=== PATIENT | female | born 1955 | race Caucasian/White ===

== ENCOUNTER 2016-05-29 20:35 | Observation (INO) | payer OTHER ==
[2016-05-29] MEDS ORDERED: IOPAMIDOL 300 (61%) 150 ML VIAL IV ONE (20:36)
[2016-05-29] MEDS ORDERED: HYDROMORPHONE HCL 0.5 MG/0.5 ML SYRINGE ONE (22:32)
[2016-05-29] MEDS ORDERED: LACTATED RINGERS 1,000 ML ONE (22:32)
[2016-05-29 22:34] LABS: ABSOLUTE NEUTROPHIL COUNT 10.2 K/mm3 (1.8-7.7); BASO % 0.3 % (0.2-1.0); EOS % 0.3 % (0.9-2.9); HEMATOCRIT 29.7 % (37.0-47.0); HEMOGLOBIN 9.8 gm/l (12.0-16.0); IMM NEUT # 0.1 K/mm3 (0-0.2); IMM NEUT% 0.6 % (0-1); LYMPH # 0.6 (1.0-4.8); LYMPH % 5.3 % (15-45); MEAN CELL VOLUME 89.5 fl (81.0-99.0); MEAN CORPUSCULAR HEMOGLOBIN 29.5 pg (27.0-31.0); MEAN PLATELET VOLUME 9.3 fl (7.4-10.4); MONO # 0.9 (0.0-0.8); MONO % 7.6 % (4-12); NEUT % 85.9 % (43-75); PLATELET COUNT 370 K/mm3 (130-400); RED CELL DISTRIBUTION WIDTH 21.4 % (11.5-14.5)
[2016-05-29 22:50] LABS: CALCIUM 9.4 mg/dL (8.6-10.3)
[2016-05-30 00:10] LABS: SPECIFIC GRAVITY 1.015 (1.001-1.030); URINE APPEARANCE CLEAR; URINE BILIRUBIN NEGATIVE (NEGATIVE); URINE BLOOD NEGATIVE (NEGATIVE); URINE COLOR YELLOW; URINE GLUCOSE (UA) NEGATIVE (NEGATIVE); URINE LEUKOCYTE ESTERASE NEGATIVE (NEGATIVE); URINE NITRITE NEGATIVE (NEGATIVE); URINE PROTEIN NEGATIVE (NEGATIVE); URINE UROBILINOGEN NORMAL (0-1 mg/dl)
[2016-05-30] MEDS ORDERED: POTASSIUM CHLORIDE 10MEQ/100ML 100 ML IV ONE (00:15)
[2016-05-30] MEDS ORDERED: Potassium Chloride ORAL SOLN 20 MEQ/15 ML UDCUP ONE (00:16)
[2016-05-30 01:26] VITALS: BMI 17.2
[2016-05-30] MEDS ORDERED: BISACODYL 5 MG TABLET.EC PO PRN (01:54)
[2016-05-30] MEDS ORDERED: ACETAMINOPHEN 325 MG TABLET PO PRN (01:54)
[2016-05-30] MEDS ORDERED: BISACODYL 10 MG SUP PR PRN (01:54)
[2016-05-30] MEDS ORDERED: SODIUM CHLORIDE 0.9% 100 ML IV PRN (01:54)
[2016-05-30] MEDS ORDERED: BLISTEX LIPSTICK 1 EACH TP PRN (01:54)
[2016-05-30] MEDS ORDERED: MAGNESIUM HYDROXIDE 30 ML UDCUP PO PRN (01:54)
[2016-05-30] MEDS ORDERED: MENTHOL/CETYLPYRD 1 EACH LOZENGE PO PRN (01:54)
[2016-05-30] MEDS ORDERED: MAGNESIUM CITRATE 300 ML BOT PO ONE (03:00)
[2016-05-30] MEDS ORDERED: PIPERACILLIN-TAZO PREMIX BAG 3.375 G in Premix (D5W) 50 ml 1 EACH IV SCH (07:30)
[2016-05-30] MEDS ORDERED: LIDOCAINE 2% ONE (07:49)
[2016-05-30] MEDS ORDERED: HYDROMORPHONE HCL 0.5 MG/0.5 ML SYRINGE ONE (07:49)
[2016-05-30] MEDS ORDERED: LIDOCAINE 2% UROJECT 10 ML ONE (07:50)
[2016-05-30] MEDS ORDERED: MINERAL OIL 25 ML BOT PR ONE (07:59)
[2016-05-30] MEDS ORDERED: POTASSIUM CHLORIDE 40 MEQ in SODIUM CHLORIDE 0.9% 500 ML IV ONE (08:03)
[2016-05-30] MEDS ORDERED: HYDROMORPHONE HCL 0.5 MG/0.5 ML SYRINGE IV ONE (08:04)
[2016-05-30] MEDS ORDERED: LIDOCAINE 2% UROJECT 10 ML PR ONE (08:04)
[2016-05-30] MEDS: PIPERACILLIN SODIUM/TAZOBACTAM 3.375 G in NS 0.9% (MINI-BAG PLUS) 50 ML IV SCH ×3 (08:26→20:31)
--- NOTE | 2016-05-30 08:37 | CT ---
Exam Type: ABD/PELVIS W/ CON Date and Time: 05/29/2016 9:57 PM Clinical information: Concern for perirectal abscess. Comparison: Plain films 08/16/2015 Technique: Contiguous axial 4 mm images were obtained from the lung bases through the pelvis after the uneventful IV administration of 100 cc of Isovue-300. Sagittal and coronal reformations with high resolution lung algorithm images were also obtained at this time. CT DI: 5.6 DLP 264.5 FINDINGS: Mild motion artifact does limit assessment. Lung base :No abnormality is identified at the lung bases. Visualized heart:There is no pericardial effusion. LIVER: There may be some mild fatty infiltration to the liver. BILE DUCTS: normal caliber. GALLBLADDER: No calcified gallstones. Normal caliber wall. PANCREAS: within normal limits. SPLEEN: within normal limits. ADRENALS: within normal limits. KIDNEYS: The left kidney is asymmetrically larger than the right, likely of congenital nature. Stomach and small BOWEL: Normal caliber. Multiple fluid-filled loops of distal bowel are noted perhaps a few air-fluid levels. No evidence of obstruction. Large bowel: Air and stool are noted within the large bowel. Large amount of stool is present at the level of the rectum. There is haziness to the perianal fat which may relate to edema or inflammation. There is also presacral edema. LYMPH NODES: No enlarged mesenteric lymph nodes. PERITONEUM: no ascites or free air, no fluid collection. VESSELS: Mild atherosclerotic disease. Minimal ectasia of the infrarenal aorta. RETROPERITONEUM: within normal limits. ABDOMINAL WALL: within normal limits. Bladder: Quite distended. BONES: Diffuse osteopenia. Multilevel degenerative changes. No lytic or sclerotic lesions. IMPRESSION: Thickening of the perianal tissues worrisome for edema/infection or inflammation. No discrete abscess is identified at this time. Presacral edema is also noted. A large amount of stool is identified within the rectum. Quite distended urinary bladder and other incidental findings as above. Preliminary report was provided by [facility] at approximately 2337 hours on 05/30/2016.
[2016-05-30] MEDS: POLYETHYLENE GLYCOL 3350 17 G POWD.SUSP PO SCH ×2 (09:32→20:31)
[2016-05-30] MEDS: SENNOSIDES 8.6 MG TABLET PO SCH ×2 (09:32→20:31)
[2016-05-30] MEDS: DOCUSATE SODIUM 100 MG CAPSULE PO SCH ×2 (09:35→20:31)
--- NOTE | 2016-05-30 09:49 | HP ---
Yeimi Rapp [id number] : 1955 DATE OF ADMISSION: 05/30/2016 IDENTIFICATION: Ms. Rapp is a 60-year-old. Her primary care provider is Rashid Chawla NP. She is also followed by Dr. Melendez. CHIEF COMPLAINT: Constipation. HISTORY OF PRESENT ILLNESS: Ms. Rapp has been undergoing treatment for breast cancer. She completed four cycles of chemotherapy at the end of March and is scheduled to start radiation therapy. Her chemo was stopped due to suppression of her white blood cell count. She has been following up for weekly blood tests and states that she has been constipated since her last blood test last Saturday four days ago. She has tried oral mag citrate, Colace, and Fleets enema at home without relief. She found the Fleets to be very uncomfortable with burning in the perirectal area. She also feels that there is a swelling at her perineum. She reports a similar episode in March, which resolved spontaneously. She denies having any fever or chills. She did have some nausea with the mag citrate. REVIEW OF SYSTEMS: HEENT: No headache, lightheadedness, or loss of consciousness. No problems with ears, eyes, nose, or throat. RESPIRATORY: No cough or dyspnea. CARDIAC: No chest pain or palpitations. GASTROINTESTINAL: Nausea with mag citrate. She has been leaking small amounts of liquid stool. GENITOURINARY: Denies dysuria or urgency. She does not urinate often though. MUSCULOSKELETAL: No specific complaints. CONSTITUTIONAL: She has lost approximately 24 pounds in the last two months secondary to chemotherapy. PAST MEDICAL HISTORY: 1. Breast cancer, I believe ductal in-situ with three positive lymph nodes on the initial surgery. She then had an axillary dissection with no further positive lymph nodes found. She has been receiving chemotherapy and is set to start radiation therapy. 2. She denies other chronic medical conditions. 3. 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 PAST SURGICAL HISTORY: 1. Right below knee amputation at 10 years of age. 2. Breast lumpectomy and sentinel node dissection followed by full axillary dissection and port-a-cath placement. ALLERGIES: None known. MEDICATIONS: She denies any current prescription medications only over the counter stool softeners and laxatives. HABITS: She does smoke half a pack of cigarettes per day. She has smoked for many years. Declines nicotine replacement. Denies alcohol or other drugs. SOCIAL HISTORY: She lives in [place] with her father and brother. She is single. 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 PAST MEDICAL HISTORY: Strongly positive for breast cancer. Her grandmother and aunt of breast cancer. There has also been coronary artery disease and cerebral aneurysm in the family. PHYSICAL EXAMINATION: GENERAL: This is an underweight 60-year-old alert and oriented and cooperative, but in some discomfort with perirectal pain. VITAL SIGNS: Temperature 97.7 degrees Fahrenheit, pulse 78, blood pressure 125/75, respiratory rate 16, oxygen saturation 94% on room air. HEENT: Pupils equal, round, and reactive. Extraocular muscles intact. Oropharynx: Full artificial dentures. Somewhat dry. CHEST: Clear to auscultation. HEART: Regular with a 2/6 murmur. Port in the right upper chest has been accessed. ABDOMEN: Soft, nontender, active bowel sounds. No organomegaly. RECTAL: Done by Dr. Stack does show a large mass of semi-firm stool not amenable to digital disimpaction due to discomfort with exam. EXTREMITIES: Right below knee amputation. Left foot, no edema. Good dorsalis pedis pulse. NEUROLOGIC: Alert and oriented. Grossly intact. INTEGUMENT: Skin is generally dry and flaky throughout. LABORATORY: White blood cell count 11.9, hemoglobin and hematocrit low at 9.8 and 29.7, platelets 370. Sodium 140, potassium low at 2.7, chloride 103, CO2 26, BUN 9, creatinine 0.6, glucose 107. Urinalysis specific gravity of 1.015, negative chemistries. DIAGNOSTICS: CT scan did show significant stool burden in the rectum and perineal phlegmon. ASSESSMENT: Ms. Rapp is a 60-year-old undergoing treatment for breast cancer who presents with rectal impaction and constipation. She has anemia which is likely related to her chemotherapy and hypokalemia and perirectal phlegmon. PLAN: 1. Refer to observation. 2. Consult surgery. 3. Trial of mineral oil enema. Will also start oral Senna and MiraLax. 4. Start antibiotic treatment with Zosyn due to the possible acute donell-rectal infection. 5. Potassium replacement. 6. Venous thromboembolism prophylaxis is not necessary as anticipated hospitalization is less than 48 hours. 7. Full code status. JOB: [id number]
--- NOTE | 2016-05-30 10:11 | PCMCONS ---
General Surgery Consult: CC: Abdominal/Perineal pain HPI: 60yo F with abdomina/perineal pain. The patient denies any recent F/C/NV/CP/SOB, change in bladder fx, constipation , diarrhea, unintentional weight loss, easy bleeding/bruising, or other associated symptoms. She has not had a BM in 4 days. In addition, she has had some incontinence to liquid stool and worsening irritation or her perineum. She takes what sounds like colace at home with no effect. She took a fleets enema which severely "burned" her perineum. Of note, she is actively being treated for breast cancer. She underwent 4/8 cycles that were stopped early due to neutropenia. She is scheduled to undergo radiation in the near future and potentially completion chemotherapy to follow. She has some nausea and a 24 pound weight loss attributed to her chemotherapy. She she denies F/C/V/CP/SOB or other associated symptoms. REVIEW OF SYSTEMS CONSTITUTIONAL: As per HPI. EARS, NOSE, MOUTH, THROAT: No sneezing or runny nose CARDIOVASCULAR: As per HPI. RESPIRATORY: As per HPI. GASTROINTESTINAL: As per HPI. GENITOURINARY: As per HPI. NEUROLOGICAL: No history of seizures HEMATOLOGIC: As per HPI. MUSCULOSKELETAL: No change in strength. LYMPHATICS: No history of splenectomy. PSYCHIATRIC: No change in personality or affect PMH: Breast Cancer found to have 3 positive lymph nodes. Underwent BCT with [facility] and ultimately completion axillary dissection. Jiang's Sarcoma at age 10 PSH: Breast surgery as above, RIGHT BKA for Jiang's Sarcoma at age 10 Meds: Stool softener (unknown name - colace?) All: NKDA SH: Smokes 1/2 PPD, denies EtOH FH: GM and Aunt of breast cancer Vitals (last 24 hours): Vital Signs - 24 hr 05/30/16 05/30/16 05/30/16 01:15 01:49 07:30 Temperature 98.2 F 97.7 F Pulse Rate 91 78 Respiratory 18 18 16 Rate Blood Pressure 128/72 125/75 O2 Saturation 93 94 by Pulse Oximetry Physical Exam: General/Constitutional: Vitals documented above, comfortable in NAD Psych: A&O x 3, normal judgment and insight. Recent and remote memory intact. Mood and affect normal. Eyes: Pupils equal, no scleral icterus Ears, Nose, Mouth, Throat: gross hearing intact Neck: Supple Heart: RRR, no LE edema Lungs: Equal rise and fall of chest wall, non-labored breathing, no audible wheezes Neuro: Gross sensation intact Abdomen: Soft, mild distension, mild suprapubic TTP, no guarding Perineum: Mild/moderate erythema in the perineum with moderate to severe TTP. No induration. Rectal: Slightly decreased tone, large stool burden of stool in the vault. I made two attempts for digital disimpaction with minimal effect and stopped further due to patient discomfort. Labs (Last 24 hours): Laboratory Results - last 24 hr 05/29/16 05/29/16 22:15 23:55 WBC 11.9 H RBC 3.32 L Hgb 9.8 L Hct 29.7 L MCV 89.5 MCH 29.5 MCHC 33.0 RDW 21.4 H Plt Count 370 Neut % (Auto) 85.9 H Lymph % (Auto) 5.3 L [place] % (Auto) 7.6 Baso % (Auto) 0.3 Absolute Neuts (auto) 10.2 H Eosinophils % 0.3 L Sodium 140 Potassium 2.7 L Chloride 103 Carbon Dioxide 26 Anion Gap 14 BUN 9 Creatinine 0.6 Estimated GFR 101 H BUN/Creatinine Ratio 15 Glucose 107 H Calcium 9.4 Urine Color Yellow Urine Appearance Clear Urine pH 7.0 Ur Specific [place] 1.015 Urine Protein Negative Urine Glucose (UA) Negative Urine Ketones Negative Urine Blood Negative Urine Nitrite Negative Urine Bilirubin Negative Urine Urobilinogen Normal Ur Leukocyte Esterase Negative % Immature Granulocyt 0.6 Radiology: CT A/P (05/29/16): FINDINGS: Mild motion artifact does limit assessment. Lung base :No abnormality is identified at the lung bases. Visualized heart:There is no pericardial effusion. LIVER: There may be some mild fatty infiltration to the liver. BILE DUCTS: normal caliber. GALLBLADDER: No calcified gallstones. Normal caliber wall. PANCREAS: within normal limits. SPLEEN: within normal limits. ADRENALS: within normal limits. KIDNEYS: The left kidney is asymmetrically larger than the right, likely of congenital nature. Stomach and small BOWEL: Normal caliber. Multiple fluid-filled loops of distal bowel are noted perhaps a few air-fluid levels. No evidence of obstruction. Large bowel: Air and stool are noted within the large bowel. Large amount of stool is present at the level of the rectum. There is haziness to the perianal fat which may relate to edema or inflammation. There is also presacral edema. LYMPH NODES: No enlarged mesenteric lymph nodes. PERITONEUM: no ascites or free air, no fluid collection. VESSELS: Mild atherosclerotic disease. Minimal ectasia of the infrarenal aorta. RETROPERITONEUM: within normal limits. ABDOMINAL WALL: within normal limits. Bladder: Quite distended. BONES: Diffuse osteopenia. Multilevel degenerative changes. No lytic or sclerotic lesions. IMPRESSION: Thickening of the perianal tissues worrisome for edema/infection or inflammation. No discrete abscess is identified at this time. Presacral edema is also noted. A large amount of stool is identified within the rectum. Quite distended urinary bladder and other incidental findings as above. A/P: 60yo F with severe constipation and large stool ball in rectum. Appears to have donell-rectal changes (sturcoral ulceration/irritation?) as well as perineal inflammation likely due to overflow incontinence of liquid stool. The patient is very opposed to enema therapy due to her poor interaction with a fleets enema. However, she does seem open to the idea of a mineral oil enema. Agree with antibiotics for perineal inflammation, especially given immunocompromised status from recent chemotherapy. If no improvement throughout today, please make NPO at midnight for potential manual disimpaction under anesthesia in the OR. OK for DVT chemoprophylaxis from my standpoint (recommend Lovenox). Herb Stack MD General Surgeon
[2016-05-30] MEDS ORDERED: ZOLPIDEM TARTRATE 5 MG TABLET PO PRN (14:50)
[2016-05-30] MEDS: NYSTATIN CREAM 15 APPLIC/15 G TUBE TP SCH ×2 (15:05→20:31)
[2016-05-30] MEDS: HYDROCORTISONE 2.5% CREAM 20 APPLIC/30 G TUBE TP SCH ×2 (15:05→20:31)
[2016-05-31] MEDS: PIPERACILLIN SODIUM/TAZOBACTAM 3.375 G in NS 0.9% (MINI-BAG PLUS) 50 ML IV SCH (02:04)
[2016-05-31 08:00] LABS: CALCIUM 8.6 mg/dL (8.6-10.3)
[2016-05-31] MEDS ORDERED: D5 1/2NS with 40mEq KCL 1,000 ML IV SCH (09:00)
[2016-05-31] MEDS: NYSTATIN CREAM 15 APPLIC/15 G TUBE TP SCH (09:00)
[2016-05-31] MEDS ORDERED: AMOX 875 MG/CLAV 125 MG 1 EACH TABLET PO SCH (09:00)
[2016-05-31] MEDS: HYDROCORTISONE 2.5% CREAM 20 APPLIC/30 G TUBE TP SCH (09:00)
[2016-05-31] MEDS ORDERED: POTASSIUM CHLORIDE 40 MEQ in SODIUM CHLORIDE 0.9% 500 ML IV ONE (09:00)
[2016-05-31] MEDS: DOCUSATE SODIUM 100 MG CAPSULE PO SCH (09:02)
[2016-05-31] MEDS: SENNOSIDES 8.6 MG TABLET PO SCH (09:07)
--- NOTE | 2016-05-31 09:29 | DS ---
Yeimi Rapp [id number] ADMISSION DATE: May 30, 2016 DATE OF DISCHARGE: May 31, 2016 DISCHARGE DIAGNOSES: 1. Fecal impaction with chronic constipation. 2. Hypokalemia. 3. Anemia due to chemotherapy. 4. Perineal dermatitis suspect a combination of yeast, irritant dermatitis, and possible early cellulitis. 5. Acute urinary retention likely due to the fecal impaction. TO SUMMARIZE THE ADMISSION AND HOSPITAL COURSE: The patient is a 60-year-old female who completed four cycles of chemotherapy at the end of March for breast cancer and presented with complaints of constipation and difficulty urinating as well as a burning painful rash in the perirectal and perineal area. The patient was evaluated in the emergency department with CT of the abdomen and pelvis and found to have thickening of the perianal tissues worrisome for infection or inflammation and a large amount of stool identified within the rectum as well as some presacral edema. She was admitted to the hospitalist service. She was treated with some Zosyn. She was noted to have a mildly elevated white count at 11.9. She had a markedly reduced potassium at 2.7. She eventually passed several large bowel movements with aggressive bowel care. She remained afebrile throughout her stay. She had some improvement in her potassium levels with treatment. She was tolerating regular diet. She initially was treated with a Goldberg catheter because of inability to urinate. After passage of the large amount of fecal material she was able to urinate without problems after removal of the catheter. She was felt to be medically stable for discharge on May 31. PHYSICAL EXAMINATION: VITALS: At discharge showed a temperature 98.3, pulse 84, blood pressure 131/72, respirations 14, oxygen saturation is 93% to 99% on room air. Body mass index 17.2, weight is 42.8 kg. GENERAL: This is a thin elderly female in no acute distress. HEENT: Unremarkable. LUNGS: Clear to auscultation bilaterally. CARDIOVASCULAR: Reveals a regular rate and rhythm without a murmur. ABDOMEN: Soft, nontender, nondistended with positive bowel sounds. The perineal tissue show some perianal ulceration and inflammation and some edema of the perineal tissues with some redness. LABORATORY STUDIES: On the day of discharge sodium was 141, potassium 3.0, BUN 5, creatinine 0.7. DISPOSITION: Home. DISCHARGE CONDITION: Good. DISCHARGE DIET: Regular diet. ALLERGIES: She has no known drug allergies. DISCHARGE MEDICATIONS: Will be: 1. Augmentin 875 mg twice daily for 5 more days. 2. She is prescribed clotrimazole/Betamethasone cream one application topically to the ulcerated and inflamed tissue in the perineum twice daily for up to 2 weeks. 3. She is prescribed MiraLax 17 gm twice daily dose to be adjusted if needed for diarrhea. 4. Potassium chloride 20 mEq twice daily for 10 days. FOLLOW UP: She has follow up scheduled with her primary care provider, Dr. Rashid Roe. JOB: [id number] CC: Dr. Rashid Melendez
[2016-05-31] MEDS: POTASSIUM CHLORIDE 20 MEQ TAB.PRT.SR PO SCH ×3 (09:48→13:48)
[2016-05-31] MEDS: POLYETHYLENE GLYCOL 3350 17 G POWD.SUSP PO SCH (09:58)
[2016-05-31 14:17] VITALS: BP 130/68
== END 2016-05-31 14:00 | disposition home or self-care (01) ==
LOC: ED 20:35 → MS 05-30 00:11
PROVIDERS: ADMIT Family Medicine; ATTEND Family Medicine
DX: K56.41 Fecal impaction (principal); C50.919 Malignant neoplasm of unspecified site of unspecified female breast; Z89.9 Acquired absence of limb, unspecified; E87.6 Hypokalemia; D64.81 Anemia due to antineoplastic chemotherapy; L30.9 Dermatitis, unspecified; R33.9 Retention of urine, unspecified
CPT/HCPCS: 85025; 80048 ×2; 83735; 81003; 74177; 96375; 99285 ×2; 96365; 51701; A9270 ×15; J3480 ×3; J2543 ×2; J7120; J7040 ×2; Q9967; J1170 ×2